=== PATIENT | female | born 1980 | race Caucasian/White ===

== ENCOUNTER 2022-08-30 19:00 | Emergency (ER) | payer MEDICAID ==
[~2022-08-30] VITALS: Ht 162.6 cm; Wt 90.7 kg
[2022-08-30 19:26] VITALS: BP 136/91; PULSE 94; RESP 20; TEMP 98.1; O2SAT 98
[2022-08-30] MEDS ORDERED: ONDANSETRON 4 MG/2 ML VIAL IVP ONE (19:45)
[2022-08-30 19:47] LABS: BASOPHILS # (AUTO) 0.1 K/uL (0.00-0.22); BASOPHILS % (AUTO) 0.8 % (0.0-2.0); EOSINOPHILS # (AUTO) 0.1 K/uL (0-0.4); EOSINOPHILS % (AUTO) 1.5 % (0.0-4.0); HEMATOCRIT 38.3 % (36-48); LYMPHOCYTES # (AUTO) 2.1 K/uL (2.5-16.5); LYMPHOCYTES % (AUTO) 23.4 % (20.5-51.1); MEAN CORPUSCULAR HEMOGLOBIN 29 pg (27-31); MEAN CORPUSCULAR HGB CONC 34 g/dL (33-37); MEAN CORPUSCULAR VOLUME 84.8 fL (80-94); MONOCYTES # (AUTO) 0.5 K/uL (0.8-1.0); MONOCYTES % (AUTO) 5.7 % (1.7-9.3); NEUTROPHILS # (AUTO) 6.2 K/uL (1.8-7.7); NEUTROPHILS % (AUTO) 68.6 % (42.2-75.2); PLATELET COUNT (AUTO) 290 K/uL (140-450); RED BLOOD CELL COUNT(AUTO) 4.52 MIL/uL (4.20-5.40); RED CELL DISTRIBUTION WIDTH 13.4 % (11.6-13.7); WHITE BLOOD COUNT (AUTO) 9.1 K/uL (4.8-10.8)
--- NOTE | 2022-08-30 19:47 | NUR ---
pt to bed 04 ambulatory
[2022-08-30 20:04] LABS: ALBUMIN 3.7 g/dL (3.4-5.0); ANION GAP 11.5 (8-16); CARBON DIOXIDE 29.1 mmol/L (21-32); CREATININE 0.6 mg/dL (0.6-1.3); POTASSIUM 3.6 mmol/L (3.5-5.1); TOTAL BILIRUBIN 0.9 mg/dL (0.0-1.0)
[2022-08-30 20:04] LABS: APPEARANCE,URINE CLEAR (CLEAR); BILIRUBIN,URINE NEGATIVE (NEGATIVE); BLOOD, URINE NEGATIVE (NEGATIVE); COLOR,URINE YELLOW (YELLOW); LEUKOCYTE ESTERASE ,URINE TRACE (NEGATIVE); NITRITE, URINE NEGATIVE (NEGATIVE); UGLUCOSE NEGATIVE (NEGATIVE)
--- NOTE | 2022-08-30 20:14 | NUR ---
42 YO F BIB SELF C/O ABD PAIN X 2 WEEKS TO LLQ RADIATING TO CENTER OF ABDOMEN. + DIARRHEA. PT STATES PAIN 12/04. AXO4. ALLERGIES: MORPHINE HX: DIVERTICULITIS, HERNIA
[2022-08-30 20:17] LABS: RBC,URINE 0-5 /HPF (0-5)
--- NOTE | 2022-08-30 20:28 | NUR ---
PT TO CT.
--- NOTE | 2022-08-30 20:43 | NUR ---
PT BACK FROM CT.
[2022-08-30 21:01] VITALS: BP 143/86; PULSE 75; RESP 14; O2SAT 96
[2022-08-30] MEDS ORDERED: KETOROLAC 15 MG/ML VIAL IVP ONE (21:05)
[2022-08-30] MEDS ORDERED: NAPR-54 PO (21:58)
--- NOTE | 2022-08-30 22:10 | NUR ---
Patient discharged with v/s stable. Written and verbal after care instructions given and explained. Patient verbalized understanding. Ambulatory with steady gait. All questions addressed prior to discharge. Advised to follow up with PMD.
== END 2022-08-30 22:10 | disposition home or self-care (01) ==
LOC: MED 19:00
DX: K63.89 Other specified diseases of intestine (principal); K52.9 Noninfective gastroenteritis and colitis, unspecified; Z88.5 Allergy status to narcotic agent
CPT/HCPCS: 36415; 74177; 80053; 81001; 81025; 83690; 84703; 85025; 96374; 96375; 99285; J1885; J2405; Q9967